=== PATIENT | male | born 1955 | race Caucasian/White ===

== ENCOUNTER 2017-09-24 20:26 | Emergency (ER) | payer BC ==
[2017-09-24] MEDS ORDERED: Sodium Chloride 0.9% 10 ML Syringe FLUSH PRN (21:24)
--- NOTE | 2017-09-24 23:17 | EDM.PDOC ---
ED HPI GENERAL MEDICAL PROBLEM - General Chief Complaint: Genitourinary Problem Stated Complaint: nlood in urine Time Seen by Provider: 09/24/17 21:16 Source of Information: Reports: Patient History Limitations: Reports: No Limitations - History of Present Illness INITIAL COMMENTS - FREE TEXT/NARRATIVE: The patient presents with left flank pain, left abdominal pain and hematuria. This all started a few hours ago. He has a history of an enlarge prostate. He has not seen his urologist for years. He had left flank pain and then he had a drop of blood and then a stream of blood. He has never had a kidney stone before. He has no fever, chills, cough, chest pain, nausea or vomiting. Onset: Sudden Duration: Hour(s): (3) Location: Reports: Abdomen, Back (Left flank) Quality: Reports: Sharp Severity: Mild Improves with: Reports: None Worsens with: Reports: None Associated Symptoms: Reports: No Other Symptoms Treatments ACCESS CLINICIAN: Reports: Other (see below) Other Treatments ACCESS CLINICIAN: none Bladder Pain Score (Numeric/FACES): 2 - Related Data Allergies Allergy/AdvReac Type Severity Reaction Status Date / Time gluten Allergy Diarrhea Verified 09/24/17 22:40 Home Meds: Home Meds Aspirin 325 mg PO BEDTIME 02/12/17 [History] Carvedilol 3.125 mg PO BID 02/12/17 [History] Fish Oil/DHA/EPA [Fish Oil 1,200 MG] 1,000 mg PO DAILY 02/12/17 [History] Lisinopril 10 mg PO DAILY 02/12/17 [History] Tamsulosin HCl 0.4 mg PO BEDTIME 02/12/17 [History] amLODIPine [Norvasc] 5 mg PO BEDTIME 02/12/17 [History] metFORMIN HCl [Metformin HCl ER] 200 mg PO BID 02/12/17 [History] Ascorbic Acid [Vitamin C] 1,000 mg PO BID 09/24/17 [History] Cholecalciferol (Vitamin D3) [Vitamin D3] 5,000 units PO DAILY 09/24/17 [History ] Multivitamin [Multi-Day Vitamins] 1 tab PO DAILY 09/24/17 [History] Past Medical History HEENT History: Reports: None Cardiovascular History: Reports: Bypass, High Cholesterol, Hypertension Respiratory History: Reports: None Gastrointestinal History: Reports: None Genitourinary History: Reports: None, Prostate Disorder Musculoskeletal History: Reports: None Neurological History: Reports: None Psychiatric History: Reports: Anxiety, Depression Endocrine/Metabolic History: Reports: Diabetes, Type II Hematologic History: Reports: None Immunologic History: Reports: None Oncologic (Cancer) History: Reports: None Dermatologic History: Reports: None - Infectious Disease History Infectious Disease History: Reports: Chicken Pox, Measles, Mumps - Past Surgical History Head Surgeries/Procedures: Reports: None Cardiovascular Surgical History: Reports: Other (See Below) Other Cardiovascular Surgeries/Procedures: Cardiac Cath recently GI Surgical History: Reports: Cholecystectomy Social & Family History - Family History Family Medical History: Noncontributory - Tobacco Use Smoking Status *Q: Never Smoker - Caffeine Use Caffeine Use: Reports: Coffee, Soda - Recreational Drug Use Recreational Drug Use: No ED ROS GENERAL - Review of Systems Review Of Systems: See Below Constitutional: Reports: No Symptoms HEENT: Reports: No Symptoms Respiratory: Reports: No Symptoms Cardiovascular: Reports: No Symptoms Endocrine: Reports: No Symptoms GI/Abdominal: Reports: Abdominal Pain. Denies: Diarrhea, Nausea, Vomiting : Reports: Flank Pain, Hematuria Musculoskeletal: Reports: No Symptoms ED EXAM, GI/ABD - Physical Exam Exam: See Below Exam Limited By: No Limitations General Appearance: Alert, No Apparent Distress Ears: Normal External Exam Nose: Normal Inspection Head: Atraumatic, Normocephalic Neck: Normal Inspection Respiratory/Chest: No Respiratory Distress, Lungs Clear, Normal Breath Sounds Cardiovascular: Regular Rate, Rhythm, No Edema, No Murmur GI/Abdominal Exam: Soft, Non-Tender, No Organomegaly, No Mass Back Exam: No: CVA Tenderness (L) Extremities: Normal Inspection Neurological: Alert, Oriented, No Motor/Sensory Deficits Course - Vital Signs Last Recorded V/S: Last Vital Signs Temp 97.4 F 09/24/17 20:58 Pulse 63 09/24/17 20:58 Resp 20 09/24/17 20:58 BP 131/85 09/24/17 20:58 Pulse Ox 99 09/24/17 20:58 - Orders/Labs/Meds Orders: Active Orders 24 hr Category Date Time Status Peripheral IV Care [RC] . DIRECTED Care 09/24/17 21:25 Active Abdomen Pelvis wo Cont [CT] Stat Exams 09/24/17 21:24 Taken Sodium Chloride 0.9% [Saline Flush] Med 09/24/17 21:24 Active 10 ml FLUSH ASDIRECTED PRN Peripheral IV Insertion Adult [OM.PC] Stat Oth 09/24/17 21:24 Ordered Medication Orders Sodium Chloride (Saline Flush) 10 ml FLUSH ASDIRECTED PRN PRN Reason: Keep Vein Open Labs: Laboratory Tests 09/24/17 09/24/17 09/24/17 Range/Units 21:18 21:44 21:44 WBC 7.18 (4.23-9.07) K/mm3 RBC 4.59 L (4.63-6.08) M/mm3 Hgb 14.2 (13.7-17.5) gm/L Hct 41.0 (40.1-51.0) % MCV 89.3 (79.0-92.2) fl MCH 30.9 (25.7-32.2) pg MCHC 34.6 (32.2-35.5) g/dl RDW Std Deviation 42.8 (35.1-43.9) fL Plt Count 193 (163-337) K/mm3 MPV 10.0 (9.4-12.3) fl Neut % (Auto) 46.3 (34.0-67.9) % Lymph % (Auto) 37.5 (21.8-53.1) % Ellis % (Auto) 9.9 (5.3-12.2) % Eos % (Auto) 5.2 (0.8-7.0) Baso % (Auto) 1.0 (0.1-1.2) % Neut # (Auto) 3.33 (1.78-5.38) K/mm3 Lymph # (Auto) 2.69 (1.32-3.57) K/mm3 Ellis # (Auto) 0.71 (0.30-0.82) K/mm3 Eos # (Auto) 0.37 (0.04-0.54) K/mm3 Baso # (Auto) 0.07 (0.01-0.08) K/mm3 Sodium 138 (136-145) mEq/L Potassium 4.0 (3.5-5.1) mEq/L Chloride 102 (98-107) mEq/L Carbon Dioxide 28 (21-32) mEq/L Anion Gap 12.0 (5-15) BUN 12 (7-18) mg/dL Creatinine 1.2 (0.7-1.3) mg/dL Est Cr Clr Drug Dosing 68.26 mL/min Estimated GFR (MDRD) > 60 (>60) mL/min BUN/Creatinine Ratio 10.0 L (14-18) Glucose 145 H (80-115) mg/dL Calcium 9.5 (8.5-10.1) mg/dL Total Bilirubin 0.5 (0.2-1.0) mg/dL AST 25 (15-37) U/L ALT 30 (16-63) U/L Alkaline Phosphatase 64 (46-116) U/L Total Protein 8.3 H (6.4-8.2) g/dl Albumin 4.3 (3.4-5.0) g/dl Globulin 4.0 gm/dL Albumin/Globulin Ratio 1.1 (1-2) Lipase 147 (73-393) U/L Urine Color Light yellow (Yellow) Urine Appearance Clear (Clear) Urine pH 7.0 (5.0-8.0) Ur Specific [place] 1.015 (1.005-1.030) Urine Protein Negative (Negative) Urine Glucose (UA) Negative (Negative) Urine Ketones Negative (Negative) Urine Occult Blood Trace-lysed H (Negative) Urine Nitrite Negative (Negative) Urine Bilirubin Negative (Negative) Urine Urobilinogen 0.2 (0.2-1.0) Ur Leukocyte Esterase Negative (Negative) Urine RBC 0-5 (0-5) /hpf Urine WBC Not seen (0-5) /hpf Ur Epithelial Cells Not seen (0-5) /hpf Urine Bacteria Not seen (FEW) /hpf Urine Mucus Not seen (FEW) /hpf Meds: Medications Generic Name Dose Route Start Last Admin Trade Name Freq PRN Reason Stop Dose Admin Sodium Chloride 10 ml 09/24/17 21:24 Saline Flush FLUSH ASDIRECTED PRN Keep Vein Open - Re-Assessments/Exams Free Text/Narrative Re-Assessment/Exam: 09/24/17 23:18 I ordered a UA, labs and a CT of the abdomen and pelvis. His UA shows occult blood in the urine. His CBC and CMP look good. His CT shows enlarged prostate gland. Mild bladder wall thickening with bladder distention. Questionable tiny stone in the bladder. This is best seen on sagittal images 61 and 60. The patient may have recently passed a small ureteral stone. He is doing good. I will discharge him home. Departure - Departure Time of Disposition: 23:20 Disposition: Home, Self-Care 01 Condition: Good Clinical Impression: Kidney stone - Discharge Information *PRESCRIPTION DRUG MONITORING PROGRAM REVIEWED*: Not Applicable *COPY OF PRESCRIPTION DRUG MONITORING REPORT IN PATIENT XOCHITL: Not Applicable Referrals: PCP,None [Primary Care Provider] - Additional Instructions: Drink plenty of fluids. Take tylenol or motrin for pain. Follow up with your urologist. You also have some mild swelling of your bladder. Follow up with your urologist for that also. Please return if you are worse. - My Orders Last 24 Hours: My Active Orders 09/24/17 21:24 Abdomen Pelvis wo Cont [CT] Stat Sodium Chloride 0.9% [Saline Flush] 10 ml FLUSH ASDIRECTED PRN Peripheral IV Insertion Adult [OM.PC] Stat 09/24/17 21:25 Peripheral IV Care [RC] . DIRECTED - Assessment/Plan Last 24 Hours: My Active Orders 09/24/17 21:24 Abdomen Pelvis wo Cont [CT] Stat Sodium Chloride 0.9% [Saline Flush] 10 ml FLUSH ASDIRECTED PRN Peripheral IV Insertion Adult [OM.PC] Stat 09/24/17 21:25 Peripheral IV Care [RC] . DIRECTED
--- NOTE | 2017-09-25 11:03 | CT ---
CT abdomen and pelvis Technique: Multiple axial sections were obtained from above the dome of the diaphragm inferiorly through the pubic symphysis. Intravenous and oral contrast was not utilized. Bladder is slightly distended with mild bladder wall thickening with impression upon the inferior bladder by a mildly enlarged prostate gland. Kidneys show no abnormal calcifications. No abnormal calcifications are seen within the ureters. Very minimal calcification is possible within the bladder as seen on the sagittal reconstructed views measuring less than 1 mm. Difficult to exclude a very small ureteral stone that has passed. Please correlate with the patient's symptoms. Visualized lung bases show nothing acute. Noncontrast appearance of the liver shows no focal parenchymal abnormality. Prior cholecystectomy is noted. Spleen appears within normal limits. Adrenal glands show no nodule. Pancreas is within normal limits. Aorta shows atherosclerotic change which continues into the iliac vessels. No retroperitoneal adenopathy or mesenteric abnormalities are seen. Appendix is seen and is felt to be normal in size. No pelvic mass or adenopathy is seen. Impression: 1. Questionable small calcification within the bladder on the sagittal images, please correlate if patient's symptoms suggest recently passed small ureteral stone. 2. Mildly distended bladder which shows bladder wall thickening most likely relating to an element of bladder outlet obstruction from enlarged prostate gland. 3. Other incidental findings. Diagnostic code #3 I agree with preliminary report issued by [facility] ([facility] report finalized on 09/24/17, 11:43 PM Central Time)
== END 2017-09-24 23:43 | disposition home or self-care (01) ==
LOC: JD.ED 20:26
DX: N20.0 Calculus of kidney (principal); I10 Essential (primary) hypertension; E78.00 Pure hypercholesterolemia, unspecified; E11.9 Type 2 diabetes mellitus without complications; F41.9 Anxiety disorder, unspecified; F32.9 Major depressive disorder, single episode, unspecified; Z79.82 Long term (current) use of aspirin; Z91.018 Allergy to other foods; Z79.899 Other long term (current) drug therapy
CPT/HCPCS: 36415; 74176; 80053; 81001; 83690; 85025; 99284; J7050